=== PATIENT | female | born 1955 | race Caucasian/White ===

== ENCOUNTER 2018-10-18 09:45 | Day surgery (SDC) | payer MEDICARE, OTHER ==
[2018-10-18] MEDS: BUPIVACAINE 0.5% (SDV) 30 ML INJ (11:23)
[2018-10-18] MEDS ORDERED: OXYCODONE/ACETAMINOPHEN (5/325) TAB PO ×2 (12:30)
[2018-10-18] MEDS ORDERED: EPHEDrine SULFATE 50 MG/5 ML SYG IV (12:30)
[2018-10-18] MEDS ORDERED: MEPERIDINE 25 MG INJ IV (12:30)
[2018-10-18] MEDS ORDERED: METOCLOPRAMIDE 10 MG INJ IV (12:30)
[2018-10-18] MEDS ORDERED: LABETALOL HCL 20MG INJ IV (12:30)
[2018-10-18] MEDS ORDERED: ALBUTEROL 0.083% (NEB) 2.5 MG/3 ML AMP HHN (12:30)
[2018-10-18] MEDS ORDERED: DIPHENHYDRAMINE 50 MG INJ IV (12:30)
[2018-10-18] MEDS ORDERED: hydrALAzine 20 MG INJ IV (12:30)
[2018-10-18] MEDS ORDERED: ONDANSETRON 4 MG INJ IV (12:30)
[2018-10-18] MEDS ORDERED: FENTAnyl 50 MCG/ML VIAL IV ×3 (12:30)
== END 2018-10-18 14:44 | disposition home or self-care (01) ==
LOC: SDS 09:45
DX: D16.32 Benign neoplasm of short bones of left lower limb (principal)
CPT/HCPCS: 28124